=== PATIENT | female | born 1940 | race Caucasian/White ===

== ENCOUNTER 2017-10-15 17:06 | Emergency (ER) | payer BC, MEDICARE ==
[~2017-10-15] VITALS: Ht 175.3 cm; Wt 85.3 kg
[~2017-10-15 17:06] MED LIST: ACETAMINOPHN-T1 EACH PO; AF CAPSICUM 0.060 GM TOP; ASPIRIN325 PO; BACTRIM DS TAB1 EACH PO; BENADRYL25 MG PO; COLACE100 MG PO; FISH OIL 1,0001 EAC5; FLEXERIL PO; HYDROCODON-ACE1 EAC7 PO; HYDROCODONE-AP1 EAC6 PO; IBUPROFEN 600600 M1 PO; METAMUCIL1 EAC1 PO; MOBIC15 MG PO; MOM PO; MULTIVITAMINS; NORCO 5-325 TA1 EACH PO; OXYCODONE HCL 55 MG PO; OXYCONTIN10 M1 PO; RECLAST 55 MG/1002 IVPB; TRAMADOL 50 MG50 MG PO; TRAMADOL-ACETA1 EACH PO; TUMS PO; TUMS ULTRA400 MG PO; TUMS X-STR300 MG PO; TYLENOL325 MG PO; VITAMIN D32000 UNIT PO; WOMEN'S DAILY1 EAC3 PO; XARELTO10 MG PO; ZOFRAN4 MG PO
[2017-10-15 18:21] LABS: ABSOLUTE BASOPHILS 0.1 thou/uL (0.0-0.2); ABSOLUTE MONOCYTES 0.4 thou/uL (0.0-1.2); ABSOLUTE NEUTROPHILS 6.7 thou/uL (1.6-8.1); BASOPHILS 0.6 %; EOSINOPHILS 0.1 %; HEMATOCRIT 41.1 % (37.0-47.0); HEMOGLOBIN 13.8 gm/dL (12.0-15.0); LYMPHOCYTES 12.3 %; MCH 31.3 pg (26.0-34.0); MCHC 33.6 g/dL (28.0-37.0); MCV 93.1 fL (80.0-100.0); MONOCYTES 5.3 %; MPV 9.2 fl. (7.2-11.1); NUCLEATED RBCS 0 /100WBC; PLATELET COUNT* 181 thou/uL (150-400); POLYS 81.7 %; RBC 4.42 mil/uL (4.20-5.00); RDW-CV 13.7 % (10.5-14.5); WBC 8.2 thou/uL (4.0-11.0)
[2017-10-15 18:26] LABS: CALCIUM 8.7 mg/dL (8.5-10.1); CREATININE 0.7 mg/dL (0.6-1.3); POTASSIUM 3.7 mmol/L (3.5-5.1)
[2017-10-15] MEDS ORDERED: MEDROLDOSEPACK PO (18:53)
[2017-10-15] MEDS ORDERED: NORFLEX100 MG PO (18:53)
[2017-10-15 19:15] VITALS: BP 155/58
== END 2017-10-15 19:15 | disposition home or self-care (01) ==
LOC: M.ERS 17:06
PROVIDERS: Nurse Practitioner
DX: S39.012A Strain of muscle, fascia and tendon of lower back, initial encounter (principal); I10 Essential (primary) hypertension; M19.90 Unspecified osteoarthritis, unspecified site; Z90.49 Acquired absence of other specified parts of digestive tract; Z96.651 Presence of right artificial knee joint; X50.1XXA Overexertion from prolonged static or awkward postures, initial encounter; Y93.89 Activity, other specified; Y92.89 Other specified places as the place of occurrence of the external cause; Y99.8 Other external cause status

== ENCOUNTER → 2017-11-28 | Outpatient (CLI) | payer BC, MEDICARE ==
[~2017-11-28] MED LIST changes: +CHLORTHALIDONE25 MG PO; +MEDROLDOSEPACK PO; +NORFLEX100 MG PO; +TYMLOS1.56 ML SUBQ
== END ==
LOC: M.RAD 10:15
DX: S32.020A Wedge compression fracture of second lumbar vertebra, initial encounter for closed fracture (principal); S22.080A Wedge compression fracture of T11-T12 vertebra, initial encounter for closed fracture; X58.XXXA Exposure to other specified factors, initial encounter; Y93.89 Activity, other specified; Y92.89 Other specified places as the place of occurrence of the external cause; Y99.8 Other external cause status

== ENCOUNTER 2018-03-08 11:56 | Emergency (ER) | payer BC, MEDICARE ==
[~2018-03-08] VITALS: Ht 175.3 cm; Wt 83.9 kg
[~2018-03-08 11:56] MED LIST changes: -CHLORTHALIDONE25 MG PO; -TYMLOS1.56 ML SUBQ
[2018-03-08] MEDS ORDERED: TUMS PO (12:13)
[2018-03-08] MEDS ORDERED: CHLORTHALIDONE25 MG PO (12:13)
[2018-03-08] MEDS ORDERED: TYMLOS1.56 ML SUBQ (12:13)
[2018-03-08] MEDS ORDERED: MOBIC15 MG PO (13:34)
[2018-03-08 13:54] VITALS: BP 140/61
== END 2018-03-08 13:55 | disposition home or self-care (01) ==
LOC: M.ERS 11:56
DX: M48.56XA Collapsed vertebra, not elsewhere classified, lumbar region, initial encounter for fracture (principal); I10 Essential (primary) hypertension; Z96.651 Presence of right artificial knee joint; Z90.49 Acquired absence of other specified parts of digestive tract

== ENCOUNTER 2018-06-15 18:18 | Emergency (ER) | payer BC, MEDICARE ==
[~2018-06-15] VITALS: Ht 175.3 cm; Wt 82.6 kg
[~2018-06-15 18:18] MED LIST changes: +CHLORTHALIDONE25 MG PO; +TYMLOS1.56 ML SUBQ
[2018-06-15 19:19] LABS: URINE BILIRUBIN NEGATIVE (Negative); URINE BLOOD NEGATIVE (Negative); URINE CLARITY CLEAR; URINE COLOR YELLOW; URINE GLUCOSE-RANDOM NEGATIVE (Negative); URINE KETONES NEGATIVE (Negative); URINE LEUKOCYTES-REFLEX NEGATIVE (Negative); URINE NITRITE-REFLEX NEGATIVE (Negative); URINE PROTEIN NEGATIVE (Negative); URINE SPECIFIC GRAVITY <= 1.005 (1.005-1.030); URINE UROBILINOGEN 0.2 E.U./dl (0.2-1.0)
[2018-06-15 19:46] LABS: ABSOLUTE EOSINOPHILS 0.1 thou/uL (0.0-0.7); ABSOLUTE LYMPHOCYTES 1.5 thou/uL (0.8-5.3); ABSOLUTE MONOCYTES 0.4 thou/uL (0.0-1.2); ABSOLUTE NEUTROPHILS 3.8 thou/uL (1.6-8.1); BASOPHILS 0.8 %; EOSINOPHILS 0.9 %; HEMATOCRIT 39.3 % (37.0-47.0); HEMOGLOBIN 13.2 gm/dL (12.0-15.0); LYMPHOCYTES 26.4 %; MCH 31.7 pg (26.0-34.0); MCHC 33.6 g/dL (28.0-37.0); MCV 94.5 fL (80.0-100.0); MONOCYTES 6.9 %; MPV 8.6 fl. (7.2-11.1); NUCLEATED RBCS 0 /100WBC; PLATELET COUNT* 235 thou/uL (150-400); RBC 4.16 mil/uL (4.20-5.00); RDW-CV 13.6 % (10.5-14.5); WBC 5.8 thou/uL (4.0-11.0)
[2018-06-15 19:55] LABS: CALCIUM 9.1 mg/dL (8.5-10.1); CREATININE 0.7 mg/dL (0.6-1.3); POTASSIUM 3.7 mmol/L (3.5-5.1)
[2018-06-15 19:59] LABS: ALBUMIN 3.5 g/dL (3.4-5.0); TOTAL BILIRUBIN 0.3 mg/dL (<0.1-1.0)
[2018-06-15] MEDS ORDERED: NORCO 5-325 TA1 EACH PO (20:12)
[2018-06-15 20:29] VITALS: BP 164/57
== END 2018-06-15 20:30 | disposition home or self-care (01) ==
LOC: M.ERS 18:18
PROVIDERS: Nurse Practitioner Family
DX: M54.5 Low back pain (principal); I10 Essential (primary) hypertension; Z90.49 Acquired absence of other specified parts of digestive tract; Z96.651 Presence of right artificial knee joint